=== PATIENT | female | born 1955 | race Caucasian/White ===

== ENCOUNTER 2022-01-19 08:41 | Outpatient (CLI) | payer MEDICARE ==
--- NOTE | 2022-01-26 14:52 | Mammography Report ---
BILATERAL DIGITAL SCREENING MAMMOGRAM 3D/2D: 01/19/2022 CLINICAL: Routine screening. Additional films were requested but not obtained. There are scattered fibroglandular elements in bot h breasts. There is an oval mass with coarse calcifications in the left breast at 8 o'clock posterior depth. No other significant masses, calcifications, or other findings are seen in either breast. IMPRESSION: INCOMPLETE: NEED PRIOR STUDIES FOR COMPARISON The oval mass in the left breast resembles a fibroadenoma and is indeterminate. Additional views wit h possible ultrasound are recommended. This exam was interpreted at Station ID: [id number]. NOTE: For mammograms, a report in lay terms will be sent to the patient. Approximately 15% of breast malignancies will not be visualized mammographically. In the management of a palpable breast mass, a negative mammogram must not discourage biopsy of a clinically suspicious lesion. Electronically Signed By: Kenny ford/juvencio:01/26/2022 08:30:23 ACR BI-RADS Category 0 Need prior studies for comparison [id number] PARENCHYMAL PATTERN: (A) - The breast(s) demonstrate(s) scattered fibroglandular densities. BI-RADS CATEGORY: (0) - 0 Mammo and [place] [id number] Immediate follow-up LATERALITY: (L)
== END 2022-01-19 08:42 | disposition home or self-care (01) ==
LOC: DI.N 08:41
DX: Z12.31 Encounter for screening mammogram for malignant neoplasm of breast (principal); R92.8 Other abnormal and inconclusive findings on diagnostic imaging of breast

== ENCOUNTER 2022-04-01 08:52 | Emergency (ER) | payer MEDICARE ==
--- NOTE | 2022-04-01 09:02 | ED Physician Documentation ---
PD HPI ABD PAIN - Stated complaint Stated Complaint: ABD PAIN - History obtained from History obtained from: Patient - History of Present Illness Timing - onset: How many days ago (3) Timing - duration: Days (3) Timing - details: Abrupt onset, Still present, Waxing and waning. No: Intermittant Quality: Cramping, Aching, Pain Location: Epigastric, LUQ, Periumbilical Radiation: Upper back Improved by: Laying still, Vomiting Worsened by: Eating, Moving. No: Breathing Associated symptoms: Nausea, Vomiting (couple of times), Diarrhea (soft stool), Loss of appetite. No: Fever, Constipation, Melena, Dysuria, Hematuria Similar symptoms before: Has not had sx before (History of diverticulitis with diverticular pain commonly. This feels different.) Recently seen: Not recently seen Review of Systems Constitutional: denies: Fever, Chills Nose: denies: Rhinorrhea / runny nose, Congestion Throat: denies: Sore throat Respiratory: denies: Cough GI: reports: Abdominal Pain, Nausea, Vomiting. denies: Constipation, Diarrhea : denies: Dysuria, Frequency Skin: denies: Rash, Lesions Neurologic: denies: Generalized weakness, Near syncope, Altered mental status PD PAST MEDICAL HISTORY - Past Medical History Cardiovascular: None Respiratory: None Endocrine/Autoimmune: None GI: Diverticulitis : None - Past Surgical History Past Surgical History: No - Present Medications Home Medications: Ambulatory Orders Medication Instructions Recorded Confirmed Amox/Clav 875/125 [Augmentin] 1 each PO Q12H #14 tablet 04/01/22 Naproxen 500 mg PO BID #14 tab.sr 04/01/22 Ondansetron Odt [Zofran] 4 mg TL Q6H PRN #15 tablet 04/01/22 oxyCODONE [Roxicodone] 5 mg PO Q6H PRN #12 tablet 04/01/22 - Allergies Allergies/Adverse Reactions: Allergies Allergy/AdvReac Type Severity Reaction Status Date / Time No Known Drug Allergies Allergy Verified 04/01/22 09:05 PD ED PE NORMAL - Vitals Vital signs reviewed: Yes - General General: Alert and oriented X 3, Well developed/nourished, Other (appears in considerable pain from abd. ) - Neck Neck: Supple, no meningeal sign, No adenopathy - Cardiac Cardiac: RRR, No murmur - Respiratory Respiratory: No respiratory distress, Clear bilaterally - Abdomen Abdomen: Soft, Non distended, No organomegaly, Other (Decreased bowel sounds generally. Moderately severe tenderness in the mid to left upper abdomen and epigastric area with guarding and percussion tenderness. No rebound. Lower abdomen not tender.) - Back Back: No CVA TTP - Derm Derm: Normal color, Warm and dry - Extremities Extremities: No edema, No calf tenderness / cord - Neuro Neuro: Alert and oriented X 3, No motor deficit, Normal speech Results - Vitals Vitals: Vital Signs - 24 hr 04/01/22 04/01/22 09:01 11:04 Temperature 36.4 C L Heart Rate 70 67 Respiratory 17 18 Rate Blood Pressure 144/81 H 137/80 H O2 Saturation 94 93 Oxygen O2 Source Room air - Labs Labs: Laboratory Tests 04/01/22 04/01/22 04/01/22 09:47 09:47 09:55 WBC 11.4 H RBC 4.30 Hgb 12.6 Hct 38.1 MCV 88.6 MCH 29.3 MCHC 33.1 RDW 13.0 Plt Count 329 MPV 8.6 Neut # (Auto) 9.4 H Lymph # (Auto) 0.9 L [place] # (Auto) 1.0 Eos # (Auto) 0.0 Baso # (Auto) 0.0 Absolute Nucleated RBC 0.00 Nucleated RBC % 0.0 Sodium 136 Potassium 3.4 L Chloride 100 L Carbon Dioxide 26 Anion Gap 10.0 BUN 9 Creatinine 0.6 Estimated GFR (MDRD) 100 Glucose 107 H Calcium 8.8 Total Bilirubin 0.8 AST 15 ALT 15 Alkaline Phosphatase 51 Total Protein 6.8 Albumin 3.5 Globulin 3.3 Albumin/Globulin Ratio 1.1 Lipase 32 Urine Color YELLOW Urine Clarity CLEAR Urine pH 6.0 Ur Specific [place] <=1.005 Urine Protein NEGATIVE Urine Glucose (UA) NEGATIVE Urine Ketones NEGATIVE Urine Occult Blood SMALL H Urine Nitrite NEGATIVE Urine Bilirubin NEGATIVE Urine Urobilinogen 0.2 (NORMAL) Ur Leukocyte Esterase TRACE H Urine RBC 6-10 H Urine WBC 4-5 Ur Squamous Epith Cells FEW Squamous Urine Bacteria Rare Ur Microscopic Review INDICATED Urine Culture Comments INDICATED - Rads (name of study) abd/pelvic CT without contrast Radiology: Prelim report reviewed (Diverticula without diverticulitis. Terminal ileum is normal. There is gallbladder distention with wall thickening and surrounding fluid and a stone in the neck consistent with likely cholecystitis. Ultrasound recommended.), See rad report PD MEDICAL DECISION MAKING - ED course Complexity details: reviewed results (White count and lipase and LFTs are normal. CT scan showing likely cholecystitis. Will confirm with ultrasound and evaluate the common bile duct. Symptoms are improved with some pain medicine. We will discuss options after ultrasound.), re-evaluated patient, considered differential (Mid to upper abdominal pain. Consider diverticulitis versus ureteral process. There is some tenderness in the upper abdomen so consider gastritis or pancreas. Less tender to the right but still gallbladder possible. We will get labs and CT scan.), d/w patient, d/w inbound sales consultant (I spoke with Sergei BARRAGAN on-call who states he did not have any prompter follow-up outpatient and referred to our local surgical staff. The patient does not seem to need emergent surgery. If she comes back over the weekend with worse symptoms, to recall [place] for transfer.) Departure - Departure Clinical Impression: Abdominal pain, Acute cholecystitis Condition: Stable Record reviewed to determine appropriate education?: Yes Instructions: ED Gallbladder Infec Conf Follow-Up: KELLY HALE PA-C [Primary Care Provider] - Francisco Pham MD [Provider Admit Priv/Credential] - Prescriptions: Amox/Clav 875/125 [Augmentin] 1 each PO Q12H #14 tablet Naproxen 500 mg PO BID #14 tab.sr oxyCODONE [Roxicodone] 5 mg PO Q6H PRN #12 tablet PRN Reason: Pain Ondansetron Odt [Zofran] 4 mg TL Q6H PRN #15 tablet PRN Reason: Nausea / Vomiting Comments: It does look like you have an inflamed and concern for infection gallbladder causing your symptoms. The gallbladder is stimulated to contract in response to the need to digest food and in particular fatty foods. Therefore I would suggest clear liquid diet or bland food (nonfatty) over the next few days. Small frequent fluids to maintain hydration. Use ondansetron if needed for nausea every 4-6 hours. Naproxen anti- inflammatory twice daily with antacid, simple food or some sips of fluids. Augmentin twice daily for a week for potential early infection as well. Add Tylenol every 4-6 hours for mild pain and oxycodone to that if needed for worse pain. Return to the ER if worsening pain again or fevers, repetitive vomiting, other concerns. Otherwise call the surgical office Sunday morning and see if they are able to get you in as an ER follow-up within 1 or 2 days. If they are not able to see you and you are still having some degree of symptoms, then just return to the ER for recheck. If this improves to normal, then you may be able to "wait and see" if recurrent problem. Otherwise, to discuss with a surgeon the pros and cons of gallbladder surgery. I transmitted your prescriptions to [facility] in [place]. The [facility] pharmacy here in [place] will not be open this weekend. I am prescribing a short course of narcotic pain medication for you. These are potentially dangerous and addictive medications that should be used carefully. These medications may constipate you. Take an krvm-fib-[id number] stool softener such as docusate twice daily with plenty of water while taking these medications. If you go 24 hours without a bowel movement, take [id number] MiraLAX, per package instructions. Do not drink or drive while taking these medications. If you received narcotic or sedating medications while in the emergency department do not drive for 24 hours. Store this medication in a safe, secure place and out of reach of children. It is a violation of federal law to give or sell this medication to another person or to use in a manner other than prescribed. The ED will not refill narcotic prescriptions, including prescriptions lost or stolen. You can dispose of unwanted medications at the [facility]'s office or at several pharmacies such as [facility].
[2022-04-01] MEDS ORDERED: SODIUM CHLORIDE 0.9% 1,000 ML IV STA (09:25)
[2022-04-01] MEDS ORDERED: HYDROmorphone 1 MG/ML CARPUJECT IVP STA (09:25)
[2022-04-01] MEDS ORDERED: ONDANSETRON 4 MG/2 ML VIAL IVP STA (09:25)
[2022-04-01 09:56] LABS: BASOPHILS % (AUTO) 0.2 %; EOSINOPHILS % (AUTO) 0.3 %; HCT - HEMATOCRIT 38.1 % (37.0-47.0); HGB - HEMOGLOBIN 12.6 g/dL (12.0-16.0); LYMPHOCYTES # (AUTO) 0.9 10^3/uL (1.5-3.5); LYMPHOCYTES % (AUTO) 7.7 %; MEAN CORPUSCULAR HEMOGLOBIN 29.3 pg (27.0-31.0); MEAN CORPUSCULAR HGB CONC 33.1 g/dL (32.0-36.0); MEAN CORPUSCULAR VOLUME 88.6 fL (81.0-99.0); MEAN PLATELET VOLUME 8.6 fL (7.9-10.8); MONOCYTES % (AUTO) 8.9 %; NEUTROPHILS # (AUTO) 9.4 10^3/uL (1.5-6.6); NEUTROPHILS % (AUTO) 82.5 %; PLT - PLATELET COUNT 329 10^3/uL (130-450); WHITE BLOOD COUNT 11.4 x10^3/uL (4.8-10.8)
[2022-04-01 10:00] LABS: BILIRUBIN,URINE NEGATIVE (NEGATIVE); GLUCOSE, URINE (UA) NEGATIVE (NEGATIVE); KETONES,URINE (UA) NEGATIVE (NEGATIVE); LEUKOCYTE ESTERASE, URINE TRACE (NEGATIVE); NITRITE,URINE NEGATIVE (NEGATIVE); OCCULT BLOOD,URINE SMALL (NEGATIVE); PROTEIN,URINE NEGATIVE (NEGATIVE); UROBILINOGEN,URINE 0.2 (NORMAL) E.U./dL (NORMAL)
[2022-04-01 10:05] LABS: CLARITY,URINE CLEAR (CLEAR)
[2022-04-01 10:06] LABS: BACTERIA,URINE Rare /HPF (None Seen); SQUAMOUS EPITHELIAL CELL,UR FEW Squamous (<= Few)
[2022-04-01 10:07] LABS: ALBUMIN 3.5 g/dL (3.2-5.5); ALBUMIN/GLOBULIN RATIO 1.1 (1.0-2.2); BILIRUBIN,TOTAL 0.8 mg/dL (0.2-1.0); CALCIUM 8.8 mg/dL (8.5-10.3); CREATININE 0.6 mg/dL (0.4-1.0); POTASSIUM 3.4 mmol/L (3.5-5.0); TOTAL PROTEIN 6.8 g/dL (6.7-8.2)
--- NOTE | 2022-04-01 10:19 | CT Report ---
PROCEDURE: Abdomen/Pelvis WO INDICATIONS: 3 days general abd pain TECHNIQUE: After the administration of contrast, 5 mm thick sections acquired from the diaphragms to the sym physis. 5 mm thick coronal and sagittal reformats were acquired. For radiation dose reduction, the following was used: automated exposure control, adjustment of mA and/or kV according to patient size . COMPARISON: None. FINDINGS: Image quality: Excellent. ABDOMEN: Lung bases: Lung bases are clear. Heart size is normal. Solid organs: Liver: The liver has no mass or intrahepatic biliary ductal dilatation. The portal vein and hepatic veins are patent. Biliary: The gallbladder is distended with wall thickening and surrounding inflammation. There is a s tone in the neck or cystic duct of the gallbladder. Pancreas: The pancreas has no mass or ductal dilatation. No surrounding inflammation. Spleen: Normal size. No mass. Adrenal glands: No hypertrophy or nodules. Kidneys: No obstructive calculus or hydronephrosis. No solid mass. No cystic mass. Bowel: The distal esophagus and stomach are normal. The small bowel has a normal caliber and appeara nce. The terminal ileum is normal. There is diverticulosis of the sigmoid colon with no evidence of diverticulitis. Free air/free fluid: No free air or free fluid. Abdominal wall: No abdominal wall mass or hernia. Retroperitoneum: No retroperitoneal or mesenteric adenopathy by size criteria. Aorta and inferior ve na cava are normal in size. Lymph nodes: No adenopathy. Bones: No suspicious bony lesions. No vertebral body compression fractures. Degenerative disc diseas e at L3-4 and L4-5. PELVIS: Genitourinary: Bladder wall thickness is normal. Miscellaneous: No inguinal hernias or adenopathy. IMPRESSION: 1. Acute cholecystitis. Recommend gallbladder ultrasound. 2. Diverticulosis without evidence of diverticulitis. Reviewed by: Eriberto Nolasco on 04/01/2022 10:18 AM PDT Approved by: Eriberto Nolasco on 04/01/2022 10:18 AM PDT Station ID: [id number]
--- NOTE | 2022-04-01 12:01 | Ultrasound Report ---
PROCEDURE: Abdomen Limited INDICATIONS: cholecystitis likely on CT scan; US recommended. TECHNIQUE: Real-time focused scanning was performed of the abdomen, with image documentation. COMPARISON: None FINDINGS: Gallbladder demonstrates wall thickening measuring 4.9 mm. The common bile duct is dilated measuring 7.1 mm. Pancreas was not well visualized due to overlying bowel gas however the pancreatic duct is seen measuring approximately 4.5 mm. Right kidney measures 9.4 cm in length. IMPRESSION: Gallbladder wall thickening is seen suggesting cholecystitis. Note that the gallbladder seen on CT wa s not seen with ultrasound but is probably deep being in the cystic duct Nicci and not visible by u ltrasound. Reviewed by: Erbierto Nolasco on 04/01/2022 12:00 PM PDT Approved by: Eriberto Nolasco on 04/01/2022 12:00 PM PDT Station ID: [id number]
[2022-04-01] MEDS ORDERED: HYDROmorphone 0.5 MG/0.5 ML SYRINGE IVP STA (12:08)
[2022-04-01] MEDS ORDERED: KETOROLAC 15 MG/ML VIAL IVP STA (12:08)
[2022-04-01] MEDS ORDERED: AMPICILLIN/SULBACTAM 1.5 GM in SODIUM CHLORIDE 0.9% MINIBAG 100 ML IV STA (12:49)
[2022-04-01 13:37] VITALS: BP 137/78
== END 2022-04-01 13:43 | disposition home or self-care (01) ==
LOC: ED 08:52
DX: K80.00 Calculus of gallbladder with acute cholecystitis without obstruction (principal)
CPT/HCPCS: 36415; 74176; 76705; 80053; 81001; 83690; 85025; 87086; 96374; 96375; 96376; 99284; 99285; J1170; 81003

== ENCOUNTER 2022-05-18 08:48 | Outpatient (CLI) | payer MEDICARE ==
[2022-05-18 09:12] LABS: CREATININE 0.7 mg/dL (0.4-1.0)
[2022-05-18] MEDS ORDERED: DIATRIZOATE MEGLU/DIATRIZO SOD 30 ML BOTTLE PO ONE (09:20)
--- NOTE | 2022-05-18 19:44 | CT Report ---
PROCEDURE: Abdomen/Pelvis W INDICATIONS: CHOLECYSTITIS CONTRAST: IV CONTRAST: Optiray 320 ml: 100 PO CONTRAST: Optiray 320 ml50 TECHNIQUE: After the administration of IV and oral contrast, 5 mm thick sections acquired from the diaphragms to the symphysis. 5 mm thick coronal and sagittal reformats were acquired. For radiation dose reducti on, the following was used: automated exposure control, adjustment of mA and/or kV according to josias ent size. COMPARISON: 04/01/2022. FINDINGS: Image quality: Excellent. ABDOMEN: Lung bases: Dependent atelectasis in posterior aspect of bilateral lung bases are seen. No pleural ef fusion or pneumothorax. Heart size is mildly enlarged, no pericardial effusion. Solid organs: Gallbladder is partially distended. Diffuse gallbladder wall thickening and extensive p ericholecystic inflammatory changes are seen. No calcified gallstone is noted. Liver is normal in siz e. Well-circumscribed hypodensity adjacent to gallbladder fossa in medial segment left hepatic lobe i s seen measures 1.6 x 1 cm in size and may represent hepatic cyst. 7 x 4 mm hypodensity is seen in ri ght hepatic lobe and is too small to adequately characterize. Spleen is normal in size and show nisa l enhancement. Biliary system is non dilated. Pancreas enhances normally. No adrenal nodules. Kidn eys demonstrate normal size and enhancement, without hydronephrosis. Peritoneum and bowel: Bowel loops demonstrate normal wall thickness and caliber. No free fluid or a ir. Mild fecal stasis in the colon is seen. Appendix is visualized and is within normal limits. Exte nsive sigmoid diverticulosis is seen, no colonic wall thickening or mesenteric fat stranding. No absc ess collection. Nodes and vessels: No retroperitoneal or mesenteric adenopathy by size criteria. Aorta and inferior vena cava are normal in size. Miscellaneous: Small umbilical hernia is seen containing fat only. PELVIS: Genitourinary: Bladder wall thickness is normal. Miscellaneous: No inguinal hernias or adenopathy. Bones: No suspicious bony lesions. No vertebral body compression fractures. Degenerative endplate changes and loss of disc height at L3-4 and L4-5 levels are seen. IMPRESSION: 1. Marked inflammatory changes involving gallbladder consistent with cholecystitis. No calcified gall stones. No significant biliary ductal dilatation. 2. No bowel obstruction or abnormal bowel wall thickening. No free fluid of free air. Extensive colon ic diverticulosis without evidence of acute diverticulitis. Normal appendix. 3. Hypodense areas in right and left hepatic lobes as described above which may represent hepatic cys ts. 4. Bibasilar dependent atelectasis. Reviewed by: Brayan Castellanos MD on 05/18/2022 7:43 PM PDT Approved by: Brayan Castellanos MD on 05/18/2022 7:43 PM PDT Station ID: [id number]
== END 2022-05-18 08:49 | disposition home or self-care (01) ==
LOC: DI 08:48
PROVIDERS: ATTEND Surgery
DX: K81.9 Cholecystitis, unspecified (principal); K57.30 Diverticulosis of large intestine without perforation or abscess without bleeding; J98.11 Atelectasis
CPT/HCPCS: 36415; 74177; 82565; Q9963; Q9967

== ENCOUNTER 2023-05-15 13:21 | Emergency (ER) | payer MEDICARE ==
[2023-05-15 13:40] VITALS: BP 118/73; O2SAT 99
--- NOTE | 2023-05-15 14:50 | ED Physician Documentation ---
PD HPI LOWER EXT INJURY - Stated complaint Stated Complaint: LT ANKLE INJ - Chief complaint Chief Complaint: Trauma Ext - History obtained from History obtained from: Patient - Additional information Additional information: Around lunchtime today she was getting up out of a chair and tripped on the carpet and rolled her ankle. Isolated left ankle pain. Not able to walk or bear weight. No other injuries. PD PAST MEDICAL HISTORY - Past Medical History Cardiovascular: None Respiratory: None Neuro: None Endocrine/Autoimmune: None GI: None, Colon polyps, Other (chronic cholecystitis) MASTER CHEF: None : None HEENT: Chronic vision loss Psych: None Musculoskeletal: None Derm: None - Past Surgical History Past Surgical History: No General: Colonoscopy /MASTER CHEF: Other (fibroid removal) - Present Medications Home Medications: Ambulatory Orders Medication Instructions Recorded Confirmed Naproxen 500 mg PO BID #14 tab.sr 04/01/22 04/25/22 Ondansetron Odt [Zofran] 4 mg TL Q6H PRN #15 tablet 04/01/22 04/25/22 oxyCODONE [Roxicodone] 5 mg PO Q6H PRN #12 tablet 04/01/22 04/25/22 - Allergies Allergies/Adverse Reactions: Allergies Allergy/AdvReac Type Severity Reaction Status Date / Time ondansetron [From Zofran] AdvReac Dizziness Verified 05/15/23 13:36 - Social History Does the pt smoke?: No Smoking Status: Never smoker Does the pt drink ETOH?: No Does the pt have substance abuse?: No - Immunizations Immunizations are current?: Yes - POLST Patient has POLST: No PD ED PE NORMAL - Vitals Vital signs reviewed: Yes - General General: Alert and oriented X 3, No acute distress - Extremities Extremities: Other (Tender over the talar dome of the left ankle and mild tenderness over the ATFL without malleolus or Achilles or foot tenderness. No proximal fibular tenderness.) - Neuro Neuro: Alert and oriented X 3, Normal speech Results - Vitals Vitals: Vital Signs - 24 hr 05/15/23 13:36 Temperature 35.9 C L Heart Rate 60 Respiratory 16 Rate Blood Pressure 118/73 O2 Saturation 99 Oxygen O2 Source Room air - Rads (name of study) Three-view x-ray of the right ankle is negative for fracture. Relevant Findings:: Final report received, EMP independent interpretation of test Departure - Departure Disposition: 01 Home, Self Care Clinical Impression: Left ankle sprain Qualifiers: Encounter type: initial encounter Involved ligament of ankle: anterior talofibular ligament Qualified Code(s): S93.492A - Sprain of other ligament of left ankle, initial encounter Condition: Good Record reviewed to determine appropriate education?: Yes Instructions: ED Sprain Ankle W X Ray Comments: Ice elevate. Okay to start walking on it when you are able. If you are not able to walk on it within the week, follow-up with your doctor for consideration for repeat imaging. Tylenol and/or ibuprofen as needed for pain per package instructions. Return if worse.
--- NOTE | 2023-05-15 14:52 | XRAY Report ---
PROCEDURE: Ankle 3 View LT INDICATIONS: Trauma TECHNIQUE: 3 views of the ankle were acquired. COMPARISON: None. FINDINGS: Bones: No fractures or dislocations. Ankle mortise is normally aligned. No suspicious bony lesions . Calcaneal bone spurs. Soft tissues: No tibiotalar joint effusion. Achilles tendon appears normal. IMPRESSION: No fracture. No acute osseous lesion. If symptoms and/or clinical concern for pathology persists, fur ther assessment with repeat plain film radiographs (7-10 days) or advanced imaging (CT, MR, bone scan ) should be considered. Reviewed by: Marcia Howard MD, PhD on 05/15/2023 2:51 PM PDT Approved by: Marcia Howard MD, PhD on 05/15/2023 2:51 PM PDT Station ID: [id number]
== END 2023-05-15 15:15 | disposition home or self-care (01) ==
LOC: ED 13:21
DX: S93.492A Sprain of other ligament of left ankle, initial encounter (principal); X50.1XXA Overexertion from prolonged static or awkward postures, initial encounter; Y93.89 Activity, other specified
CPT/HCPCS: 99283

== ENCOUNTER 2023-06-23 13:33 | Emergency (ER) | payer MEDICARE ==
--- NOTE | 2023-06-23 14:10 | ED Physician Documentation ---
History of Present Illness - Stated complaint Stated Complaint: SHAKING,NAUSEA - Chief complaint Chief Complaint: Abd Pain - Additonal information Additional information: 67-year-old female presents emergency department for evaluation of 3 days nausea and now vomiting this morning. She denies fevers, abdominal pain. States she recently completed a course of cephalexin for urinary tract infection diagnosed 2 weeks ago. Patient is concerned that she has sepsis. She states that she had to undergo a cholecystectomy in [facility] in [place] in October 2022. The initial cholecystectomy operation was complicated by a nicked liver, lobe liver adhesions as well as a laceration of her artery. She underwent a second surgery to correct the issues found in the first. Reports that she was profoundly ill for some period of time after this. Review of Systems Constitutional: denies: Fever, Chills Throat: reports: Reviewed and negative Cardiac: reports: Reviewed and negative Respiratory: reports: Reviewed and negative GI: reports: Abdominal Pain, Nausea, Vomiting. denies: Constipation, Diarrhea : reports: Reviewed and negative Skin: reports: Reviewed and negative PD PAST MEDICAL HISTORY - Past Medical History Cardiovascular: None Respiratory: None Neuro: None Endocrine/Autoimmune: None GI: None, Colon polyps, Other (chronic cholecystitis) MIXER AND BLENDER: None : None HEENT: Chronic vision loss Psych: None Musculoskeletal: None Derm: None - Past Surgical History Past Surgical History: No General: Colonoscopy /MIXER AND BLENDER: Other (fibroid removal) - Present Medications Home Medications: Ambulatory Orders Medication Instructions Recorded Confirmed Naproxen 500 mg PO BID #14 tab.sr 04/01/22 04/25/22 Ondansetron Odt [Zofran] 4 mg TL Q6H PRN #15 tablet 04/01/22 04/25/22 oxyCODONE [Roxicodone] 5 mg PO Q6H PRN #12 tablet 04/01/22 04/25/22 - Allergies Allergies/Adverse Reactions: Allergies Allergy/AdvReac Type Severity Reaction Status Date / Time ondansetron [From Zofran] AdvReac Dizziness Verified 06/23/23 13:41 - Social History Does the pt smoke?: No Smoking Status: Never smoker Does the pt drink ETOH?: No Does the pt have substance abuse?: No - Immunizations Immunizations are current?: Yes - POLST Patient has POLST: No PD ED PE NORMAL - General General: Alert and oriented X 3, No acute distress - Cardiac Cardiac: RRR, No murmur - Respiratory Respiratory: No respiratory distress, Clear bilaterally - Abdomen Abdomen: Normal bowel sounds, Soft, Non tender - Back Back: No CVA TTP - Derm Derm: Normal color - Extremities Extremities: No deformity, No tenderness to palpate, Normal ROM s pain - Neuro Neuro: Alert and oriented X 3, ip paralegal 2-12 intact Eye Opening: Spontaneous Motor: Obeys Commands Verbal: Oriented GCS Score: 15 Results - Vitals Vitals: Vital Signs - 24 hr 06/23/23 06/23/23 06/23/23 13:36 14:40 16:00 Temperature 36.5 C Heart Rate 95 103 H 94 Respiratory 20 18 18 Rate Blood Pressure 159/84 H 134/85 H 121/68 O2 Saturation 99 100 99 Oxygen O2 Source Room air - Labs Labs: Laboratory Tests 06/23/23 06/23/23 06/23/23 13:42 13:42 13:49 WBC 9.8 RBC 4.51 Hgb 13.6 Hct 41.7 MCV 92.5 MCH 30.2 MCHC 32.6 RDW 12.8 Plt Count 319 MPV 8.8 Neut # (Auto) 8.5 H Lymph # (Auto) 0.7 L [place] # (Auto) 0.4 Eos # (Auto) 0.1 Baso # (Auto) 0.0 Absolute Nucleated RBC 0.00 Nucleated RBC % 0.0 Sodium 134 L Potassium 3.5 Chloride 98 L Carbon Dioxide 29 Anion Gap 7.0 BUN 10 Creatinine 0.7 Estimated GFR (MDRD) 83 L Glucose 126 H Calcium 8.9 Total Bilirubin 2.2 H AST 115 H ALT 119 H Alkaline Phosphatase 492 H Total Protein 6.5 Albumin 3.6 Globulin 2.9 Albumin/Globulin Ratio 1.2 Lipase 24 Urine Color YELLOW Urine Clarity CLEAR Urine pH 7.5 Ur Specific [place] 1.015 Urine Protein NEGATIVE Urine Glucose (UA) NEGATIVE Urine Ketones NEGATIVE Urine Occult Blood TRACE-INTA Urine Nitrite NEGATIVE Urine Bilirubin NEGATIVE Urine Urobilinogen 2 H Ur Leukocyte Esterase TRACE H Urine RBC 0-5 Urine WBC 0-3 Ur Squamous Epith Cells MOD Squamous H Urine Bacteria Rare Urine Casts 3-5 Hyaline Casts Urine Mucus Marked Strands Ur Microscopic Review INDICATED Urine Culture Comments NOT INDICATED Nasal Adenovirus (PCR) Nasal B. parapertussis DNA (PCR) Nasal Coronavir 229E PCR Nasal Coronavir HKU1 PCR Nasal Coronavir NL63 PCR Nasal Coronavir OC43 PCR Nasal Enterovir/Rhinovir PCR Nasal Influenza B PCR Nasal Influenza A PCR Nasal Parainfluen 1 PCR Nasal Parainfluen 2 PCR Nasal Parainfluen 3 PCR Nasal Parainfluen 4 PCR Nasal RSV (PCR) Nasal B.pertussis DNA PCR Nasal C.pneumoniae (PCR) [place]ver Human Metapneumo PCR Nasal M.pneumoniae (PCR) Nasal SARS-CoV-2 (PCR) Group A Strep Rapid 06/23/23 06/23/23 14:30 15:24 WBC RBC Hgb Hct MCV MCH MCHC RDW Plt Count MPV Neut # (Auto) Lymph # (Auto) [place] # (Auto) Eos # (Auto) Baso # (Auto) Absolute Nucleated RBC Nucleated RBC % Sodium Potassium Chloride Carbon Dioxide Anion Gap BUN Creatinine Estimated GFR (MDRD) Glucose Calcium Total Bilirubin AST ALT Alkaline Phosphatase Total Protein Albumin Globulin Albumin/Globulin Ratio Lipase Urine Color Urine Clarity Urine pH Ur Specific [place] Urine Protein Urine Glucose (UA) Urine Ketones Urine Occult Blood Urine Nitrite Urine Bilirubin Urine Urobilinogen Ur Leukocyte Esterase Urine RBC Urine WBC Ur Squamous Epith Cells Urine Bacteria Urine Casts Urine Mucus Ur Microscopic Review Urine Culture Comments Nasal Adenovirus (PCR) NOT DETECTED Nasal B. parapertussis DNA (PCR) NOT DETECTED Nasal Coronavir 229E PCR NOT DETECTED Nasal Coronavir HKU1 PCR NOT DETECTED Nasal Coronavir NL63 PCR NOT DETECTED Nasal Coronavir OC43 PCR NOT DETECTED Nasal Enterovir/Rhinovir PCR NOT DETECTED Nasal Influenza B PCR NOT DETECTED Nasal Influenza A PCR NOT DETECTED Nasal Parainfluen 1 PCR NOT DETECTED Nasal Parainfluen 2 PCR NOT DETECTED Nasal Parainfluen 3 PCR NOT DETECTED Nasal Parainfluen 4 PCR NOT DETECTED Nasal RSV (PCR) NOT DETECTED Nasal B.pertussis DNA PCR NOT DETECTED Nasal C.pneumoniae (PCR) NOT DETECTED [place]ver Human Metapneumo PCR NOT DETECTED Nasal M.pneumoniae (PCR) NOT DETECTED Nasal SARS-CoV-2 (PCR) NOT DETECTED Group A Strep Rapid Negative PD Medical Decision Making - ED course Complexity details: reviewed results, re-evaluated patient, d/w patient ED course: 67-year-old female presented to the emergency department for evaluation of 3 days nausea and the development of acute vomiting this morning. She denied any abdominal pain or fevers. Her history is complicated by a cholecystectomy in October 2022 that was complicated by what she reports as a liver laceration as well as a nicking of the artery. She did require a second corrective surgery for these concerns. These operations took place at [facility] facilities in [facility]. Presentation to the emergency department she was without fever but did have some rigors and chills. There was no tachycardia or hypotension. On exam I elicited no abdominal tenderness subsequently I did order CBC and electrolytes as well as blood cultures and urinalysis which are pending. CBC showed no leukocytosis. Normal hemoglobin. Serum chemistry however revealed abnormal LFTs with a T. bili of 2.2, AST 115, ALT 119, alk phos 492. Most recent that we have in our system from March of last year showed normal LFTs. Urine was not consistent with an infection. Respiratory PCR negative. Strep was negative. Subsequently the patient was taken to the CT scanner and it did show pneumobilia and a dilated common bile duct but no evidence of phlegmon abscess or liver cyst. Clinically the history as well as the abnormal LFTs is concerning for a sending cholangitis. I have ordered Zosyn 4.5 g. I briefly discussed this case with our hospitalist Dr. Babita Rahman. She feels that the patient will likely require transfer to a facility that has ERCP capability which we do not have here at [facility]. In addition given the weekend and the late hour the day no MRI is not available 1850: I spoke with Dr. James MIN at [facility] he agrees the patient should be transferred for further evaluation of her cholangitis. I spoke then with Dr. Shellie Simental admitting hospitalist who accepts the patient in transfer. Appropriate COBRAs completed. Pt aware of plan to transfer and is in agreement Departure - Departure Disposition: 02 Transfer Acute Care Hosp Clinical Impression: Ascending cholangitis, Hx of cholecystectomy Forms: PCP List
[2023-06-23 14:12] LABS: BASOPHILS % (AUTO) 0.4 %; EOSINOPHILS # (AUTO) 0.1 10^3/uL (0.0-0.7); EOSINOPHILS % (AUTO) 1.3 %; HCT - HEMATOCRIT 41.7 % (37.0-47.0); HGB - HEMOGLOBIN 13.6 g/dL (12.0-16.0); LYMPHOCYTES # (AUTO) 0.7 10^3/uL (1.5-3.5); LYMPHOCYTES % (AUTO) 6.7 %; MEAN CORPUSCULAR HEMOGLOBIN 30.2 pg (27.0-31.0); MEAN CORPUSCULAR HGB CONC 32.6 g/dL (32.0-36.0); MEAN CORPUSCULAR VOLUME 92.5 fL (81.0-99.0); MEAN PLATELET VOLUME 8.8 fL (7.9-10.8); MONOCYTES # (AUTO) 0.4 10^3/uL (0.0-1.0); MONOCYTES % (AUTO) 4.4 %; NEUTROPHILS # (AUTO) 8.5 10^3/uL (1.5-6.6); NEUTROPHILS % (AUTO) 86.9 %; PLT - PLATELET COUNT 319 10^3/uL (130-450); RED BLOOD COUNT 4.51 10^6/uL (4.20-5.40); RED CELL DISTRIBUTION WIDTH 12.8 % (12.0-15.0); WHITE BLOOD COUNT 9.8 x10^3/uL (4.8-10.8)
[2023-06-23 14:14] LABS: GLUCOSE, URINE (UA) NEGATIVE (NEGATIVE); KETONES,URINE (UA) NEGATIVE (NEGATIVE); LEUKOCYTE ESTERASE, URINE TRACE (NEGATIVE); NITRITE,URINE NEGATIVE (NEGATIVE); OCCULT BLOOD,URINE TRACE-INTA (NEGATIVE); PH,URINE 7.5 PH (5.0-7.5); PROTEIN,URINE NEGATIVE (NEGATIVE); UROBILINOGEN,URINE 2 E.U./dL (NORMAL)
[2023-06-23 14:15] LABS: BILIRUBIN,URINE NEGATIVE (NEGATIVE); CLARITY,URINE CLEAR (CLEAR); ICTOTEST,URINE NEGATIVE
--- NOTE | 2023-06-23 14:19 | XRAY Report ---
PROCEDURE: Chest 1 View X-Ray INDICATIONS: n/v TECHNIQUE: One view of the chest was acquired. COMPARISON: None. FINDINGS: Surgical changes and devices: Cholecystectomy clips are seen. Lungs and pleura: An incomplete inspiratory result is noted, with low lung volumes and crowding of t he vascular markings. No focal infiltrates are seen. No large pneumothorax or large pleural effusion can be seen. Mediastinum: Mediastinal contours appear normal. Heart size is normal. Bones and chest wall: No suspicious bony lesions. Age-appropriate degenerative changes are seen. Overlying soft tissues appear unremarkable. IMPRESSION: Limited portable chest examination, without an acute abnormality identified. Postoperative and degenerative changes are seen. Reviewed by: Jesus Vizcarra MD on 06/23/2023 1:18 PM NESSA Approved by: Jesus Vizcarra MD on 06/23/2023 1:18 PM NESSA Station ID: [id number]
[2023-06-23 14:22] LABS: RBC,URINE 0-5 /HPF (0-5); SQUAMOUS EPITHELIAL CELL,UR MOD Squamous (<= Few); WBC,URINE 0-3 /HPF (0-5)
[2023-06-23 14:23] LABS: BACTERIA,URINE Rare /HPF (None Seen); CASTS, URINE 3-5 Hyaline Casts /LPF; MUCUS,URINE Marked Strands
[2023-06-23 14:26] LABS: ALBUMIN 3.6 g/dL (3.2-5.5); ALBUMIN/GLOBULIN RATIO 1.2 (1.0-2.2); BILIRUBIN,TOTAL 2.2 mg/dL (0.2-1.0); CALCIUM 8.9 mg/dL (8.5-10.3); CREATININE 0.7 mg/dL (0.6-1.3); POTASSIUM 3.5 mmol/L (3.5-4.5); TOTAL PROTEIN 6.5 g/dL (6.4-8.9)
[2023-06-23] MEDS ORDERED: SODIUM CHLORIDE 0.9% 1,000 ML IV STA (14:47)
[2023-06-23 15:10] LABS: RAPID STREP SCREEN Negative (Negative)
[2023-06-23 16:28] LABS: B. PARAPERTUSSIS- RESP PCR PAN NOT DETECTED; B. PERTUSSIS- RESP PCR PANEL NOT DETECTED; C. PNEUMONIAE- RESP PCR PANEL NOT DETECTED; CORONAVIRUS 229E-RESP PCR NOT DETECTED; CORONAVIRUS HKU1-RESP PCR NOT DETECTED; CORONAVIRUS NL63-RESP PCR NOT DETECTED; CORONAVIRUS OC43-RESP PCR NOT DETECTED; HUMAN METAPNEUMOVIRUS NOT DETECTED; INFLUENZA A- RESP PCR PANEL NOT DETECTED; INFLUENZA B - RESP PCR PANEL NOT DETECTED; M. PNEUMONIAE- RESP PCR PANEL NOT DETECTED; PARAINFLUENZA VIRUS 1 NOT DETECTED; PARAINFLUENZA VIRUS 2 NOT DETECTED; PARAINFLUENZA VIRUS 3 NOT DETECTED; PARAINFLUENZA VIRUS 4 NOT DETECTED; RHINOVIRUS/ENTEROVIRUS NOT DETECTED; RSV- RESP PCR PANEL NOT DETECTED; SARS-CoV-2 -RESP PCR PANEL NOT DETECTED
--- NOTE | 2023-06-23 17:00 | CT Report ---
PROCEDURE: ABDOMEN/PELVIS W INDICATIONS: n/v; abnormal LFT; hx of cholecystectomy CONTRAST: 100ml omni 300 TECHNIQUE: After the administration of IV contrast, 5 mm thick sections acquired from the diaphragms to the symp hysis. 5 mm thick coronal and sagittal reformats were acquired. For radiation dose reduction, the f ollowing was used: automated exposure control, adjustment of mA and/or kV according to patient size. COMPARISON: 05/18/2022, 04/01/2022 FINDINGS: Image quality: Excellent. Lung bases and heart: Unremarkable. Liver: No solid mass. Gallbladder and biliary tree: Cholecystectomy with biliary gas can be seen. Spleen: No splenomegaly. An accessory splenule is incidentally noted along the inferior aspect of th e primary spleen. Pancreas: No pancreatic ductal dilation. Adrenals: No adrenal nodule. Kidneys and ureters: No hydronephrosis. No renal cystic lesion which requires follow up. No solid mas s. Bowel and peritoneum: No bowel distension. No pathologic free fluid. A normal appendix is seen. Diverticulosis can be seen, without martha findings of active diverticulitis. Lymph nodes: No central or retroperitoneal adenopathy. Vessels: No infrarenal aortic aneurysm. PELVIS Reproductive organs: The uterus demonstrates an unremarkable appearance for age. No adnexal masses ar e seen. Bladder: No abnormal wall thickening, accounting for underdistension. Pelvic lymph nodes: No pelvic adenopathy by size criteria. Bones: No aggressive osseous abnormality. Mild levoconvex scoliotic curvature is seen. Lower lumbar spine degenerative change is seen. Milder degenerative changes are seen elsewhere. Other: No significant ventral or inguinal hernia. IMPRESSION: Interval cholecystectomy, with associated biliary gas. No significant liver abnormality is seen. Additional findings: Accessory splenule Normal appendix Diverticulosis, without findings of active diverticulitis. Levoconvex scoliotic curvature Lumbar spine degenerative change Reviewed by: Jesus Vizcarra MD on 06/23/2023 3:59 PM NESSA Approved by: Jesus Vizcarra MD on 06/23/2023 3:59 PM NESSA Station ID: [id number]
[2023-06-23] MEDS ORDERED: AMPICILLIN/SULBACTAM 3 GM in SODIUM CHLORIDE 0.9% MINIBAG 100 ML IV STA (17:08)
[2023-06-23] MEDS ORDERED: PIPERACILLIN/TAZOBACTAM 4.5 GM in SODIUM CHLORIDE 0.9% MINIBAG 100 ML IV STA (17:18)
[2023-06-23] MEDS ORDERED: iohexoL-300 100 ML VIAL IVP ONE (19:16)
[2023-06-23 21:23] VITALS: BP 122/76; O2SAT 96
[2023-06-24] MEDS ORDERED: PIPERACILLIN/TAZOBACTAM 4.5 GM in SODIUM CHLORIDE 0.9% MINIBAG 100 ML IV SCH (01:00)
== END 2023-06-23 21:26 | disposition short-term general hospital (02) ==
LOC: ED 13:33
DX: K83.09 Other cholangitis (principal)
CPT/HCPCS: 36415; 71045; 74177; 80053; 81001; 83690; 85025; 87040; 87070; 87150; 87181; 87430; 87633; 96361; 96365; 99285; Q9967; 81003; 87086

== ENCOUNTER 2023-06-23 21:22 | Outpatient (CLI) | payer MEDICARE | END 2023-06-23 23:59 | disposition short-term general hospital (02) | LOC: EMS 21:22 | PROVIDERS: ATTEND Registered Nurse | DX: K83.09 Other cholangitis (principal) | CPT/HCPCS: A0425; A0428 ==

== ENCOUNTER 2024-04-27 13:20 | Emergency (ER) | payer MEDICARE ==
[2024-04-27 13:30] VITALS: BP 129/82; O2SAT 99
[2024-04-27 14:54] LABS: BASOPHILS % (AUTO) 0.5 %; EOSINOPHILS # (AUTO) 0.2 10^3/uL (0.0-0.7); EOSINOPHILS % (AUTO) 3.8 %; HCT - HEMATOCRIT 43.4 % (37.0-47.0); HGB - HEMOGLOBIN 13.7 g/dL (12.0-16.0); LYMPHOCYTES # (AUTO) 0.8 10^3/uL (1.5-3.5); MEAN CORPUSCULAR HGB CONC 31.6 g/dL (32.0-36.0); MEAN CORPUSCULAR VOLUME 95.2 fL (81.0-99.0); MEAN PLATELET VOLUME 8.9 fL (7.9-10.8); MONOCYTES # (AUTO) 0.5 10^3/uL (0.0-1.0); MONOCYTES % (AUTO) 7.6 %; NEUTROPHILS # (AUTO) 4.8 10^3/uL (1.5-6.6); NEUTROPHILS % (AUTO) 75.9 %; PLT - PLATELET COUNT 304 10^3/uL (130-450); RED BLOOD COUNT 4.56 10^6/uL (4.20-5.40); RED CELL DISTRIBUTION WIDTH 12.7 % (12.0-15.0); WHITE BLOOD COUNT 6.3 x10^3/uL (4.8-10.8)
[2024-04-27 15:07] LABS: ALBUMIN 3.4 g/dL (3.2-5.5); BILIRUBIN,TOTAL 1.2 mg/dL (0.2-1.0); CREATININE 0.6 mg/dL (0.6-1.3); POTASSIUM 4.2 mmol/L (3.5-4.5); TOTAL PROTEIN 6.9 g/dL (6.4-8.9)
--- NOTE | 2024-04-27 15:08 | ED Physician Documentation ---
History of Present Illness - Stated complaint Stated Complaint: GI, , TIREDNESS - Chief complaint Chief Complaint: Abd Pain - History obtained from History obtained from: Patient - Additonal information Additional information: She has a history of complicated cholecystectomy and kind of chronic GI issues due to that. Takes an occasional ibuprofen. Does not drink alcohol. About 4 days ago she became sick with fevers chills and bodyaches and then developed dark tarry stool and darker than usual urine with some urinary frequency. She did take a dose of Pepto-Bismol. No history of GI bleeding. PD PAST MEDICAL HISTORY - Past Medical History Past Medical History: Yes Cardiovascular: None Respiratory: None Neuro: None Endocrine/Autoimmune: None GI: None, Colon polyps, Other POLYSOM TECH: None : None HEENT: Chronic vision loss Psych: None Musculoskeletal: None Derm: None - Past Surgical History Past Surgical History: Yes General: Colonoscopy /POLYSOM TECH: Other - Present Medications Home Medications: Ambulatory Orders Medication Instructions Recorded Confirmed Naproxen 500 mg PO BID #14 tab.sr 04/01/22 04/25/22 Ondansetron Odt [Zofran] 4 mg TL Q6H PRN #15 tablet 04/01/22 04/25/22 oxyCODONE [Roxicodone] 5 mg PO Q6H PRN #12 tablet 04/01/22 04/25/22 - Allergies Allergies/Adverse Reactions: Allergies Allergy/AdvReac Type Severity Reaction Status Date / Time ondansetron [From Zofran] AdvReac Dizziness Verified 04/27/24 13:25 - Social History Does the pt smoke?: No Smoking Status: Never smoker Does the pt drink ETOH?: No Does the pt have substance abuse?: No - Immunizations Immunizations are current?: Yes - POLST Patient has POLST: No PD ED PE NORMAL - Vitals Vital signs reviewed: Yes - General General: Alert and oriented X 3, No acute distress - Abdomen Abdomen: Other (Hyperactive bowel sounds without tenderness) - Rectal Rectal: Other (Dark but not melenic stool in the vault. Done with [facility] tech) - Neuro Neuro: Alert and oriented X 3 Results - Vitals Vitals: Vital Signs - 24 hr 04/27/24 13:26 Temperature 36.8 C Heart Rate 66 Respiratory 16 Rate Blood Pressure 129/82 H O2 Saturation 99 Oxygen O2 Source Room air - Labs Labs: Microbiology 04/27/24 15:05 Occult Blood - Final Stool Laboratory Tests 04/27/24 04/27/24 04/27/24 14:49 14:49 15:14 WBC 6.3 RBC 4.56 Hgb 13.7 Hct 43.4 MCV 95.2 MCH 30.0 MCHC 31.6 L RDW 12.7 Plt Count 304 MPV 8.9 Neut # (Auto) 4.8 Lymph # (Auto) 0.8 L [place] # (Auto) 0.5 Eos # (Auto) 0.2 Baso # (Auto) 0.0 Absolute Nucleated RBC 0.00 Nucleated RBC % 0.0 Sodium 136 Potassium 4.2 Chloride 100 L Carbon Dioxide 32 Anion Gap 4.0 L BUN 7 Creatinine 0.6 Estimated GFR (MDRD) 99 Glucose 100 Calcium 9.0 Total Bilirubin 1.2 H AST 90 H ALT 107 H Alkaline Phosphatase 589 H Total Protein 6.9 Albumin 3.4 Globulin 3.5 Albumin/Globulin Ratio 1.0 Lipase 39 Urine Color YELLOW Urine Clarity CLEAR Urine pH 7.5 Ur Specific [place] 1.015 Urine Protein NEGATIVE Urine Glucose (UA) NEGATIVE Urine Ketones NEGATIVE Urine Occult Blood NEGATIVE Urine Nitrite NEGATIVE Urine Bilirubin NEGATIVE Urine Urobilinogen 2 H Ur Leukocyte Esterase NEGATIVE Ur Microscopic Review NOT INDICATED Urine Culture Comments NOT INDICATED PD Medical Decision Making - ED course ED course: She presents with concern for GI bleeding and recent illness., That said her H&H is normal and stable from prior values and she is guaiac negative. She does have some elevation of her liver enzymes and this was discussed with her. She was sent to [place] for MRCP and failed ERCP in June of last year and says she had follow-up labs done in November of this year which showed persistent elevation of her liver enzymes. So I would presume this is "her new normal." She really does not have significant abdominal pain nor any tenderness so I do not think further workup is necessary but continued trending of the labs to establish that this is her baseline was recommended. Departure - Departure Disposition: 01 Home, Self Care Clinical Impression: Dark stools, Viral syndrome, Elevated liver function tests Condition: Stable Instructions: ED Viral Syndrome Comments: There is no evidence of blood in your stool or urine today. Urinalysis did not show any infection and your labs were reassuring from the perspective of signs of infection or bleeding. You do have modestly elevated liver enzymes, specifically bilirubin 1.2, AST 90, ALT 107, and alkaline phosphatase 589. These were elevated on your last visit here and you also tell me they were elevated in November at [place] in [facility] so I suspect this is your "new normal" after the gallbladder issue you had. Reasonable to have these checked again to make sure that these are your baseline and would recommend that you keep a set of baseline labs with you for when you are traveling outside of the [facility] area. Call your doctor to arrange a follow-up appointment, make the next available appointment. In the interim, return anytime if worse or if new symptoms develop. Forms: PCP List
[2024-04-27 15:27] LABS: BILIRUBIN,URINE NEGATIVE (NEGATIVE); GLUCOSE, URINE (UA) NEGATIVE (NEGATIVE); KETONES,URINE (UA) NEGATIVE (NEGATIVE); LEUKOCYTE ESTERASE, URINE NEGATIVE (NEGATIVE); NITRITE,URINE NEGATIVE (NEGATIVE); OCCULT BLOOD,URINE NEGATIVE (NEGATIVE); PH,URINE 7.5 PH (5.0-7.5); PROTEIN,URINE NEGATIVE (NEGATIVE); UROBILINOGEN,URINE 2 E.U./dL (NORMAL)
[2024-04-27 15:30] LABS: CLARITY,URINE CLEAR (CLEAR)
== END 2024-04-27 15:40 | disposition home or self-care (01) ==
LOC: ED 13:20 → SUPCPDRO 13:20 → ED 15:40
DX: B34.9 Viral infection, unspecified (principal); R19.5 Other fecal abnormalities; R79.89 Other specified abnormal findings of blood chemistry
CPT/HCPCS: 36415; 80053; 81001; 81003; 82272; 83690; 85025; 87086; 99283

== ENCOUNTER 2024-05-03 07:43 | Emergency (ER) | payer MEDICARE ==
--- NOTE | 2024-05-03 08:16 | ED Physician Documentation ---
History of Present Illness - Stated complaint Stated Complaint: GLF,PASSED OUT,GI ISSUES - Chief complaint Chief Complaint: Abd Pain - History obtained from History obtained from: Patient, Family - History of Present Illness Timing: Today Pain level max: 5 Pain level now: 5 - Additonal information Additional information: Patient is a 68-year-old female with a history of a complicated cholecystectomy that has had chronic gastrointestinal issues since that time. She states that she had nausea and vomiting last night. She felt like she needed to have diarrhea but could not. She states that she stood up at the sink, felt lightheaded and dizzy after vomiting and passed out striking the back of her head. She states that today she has generalized abdominal pain and aching. No blood in the stool. No blood in the vomit. No fevers or chills. No recent antibiotics. No recent travel. She states she has a history of diverticulitis. Also has mild pain to the back of the head. She states there is a lump there as well. Review of Systems Constitutional: denies: Fever, Chills Respiratory: denies: Cough GI: reports: Nausea, Vomiting. denies: Diarrhea, Hematemesis, Bloody / black stool : denies: Dysuria, Frequency, Hesitancy Skin: denies: Rash Musculoskeletal: denies: Neck pain, Back pain Neurologic: denies: Seizure, Confused, Altered mental status PD PAST MEDICAL HISTORY - Past Medical History Cardiovascular: None Respiratory: None Neuro: None Endocrine/Autoimmune: None GI: None, Colon polyps, Other SHALLOT PACKER: None : None HEENT: Chronic vision loss Psych: None Musculoskeletal: None Derm: None - Past Surgical History Past Surgical History: Yes General: Cholecystectomy, Colonoscopy /SHALLOT PACKER: Other - Present Medications Home Medications: Ambulatory Orders Medication Instructions Recorded Confirmed Naproxen 500 mg PO BID #14 tab.sr 04/01/22 04/25/22 Ondansetron Odt [Zofran] 4 mg TL Q6H PRN #15 tablet 04/01/22 04/25/22 oxyCODONE [Roxicodone] 5 mg PO Q6H PRN #12 tablet 04/01/22 04/25/22 Amox/Clav 875/125 [Augmentin] 1 each PO Q8H #30 tablet 05/03/24 Promethazine [Phenergan] 25 mg PO Q6H PRN #10 tab 05/03/24 oxyCODONE [Roxicodone] 5 - 10 mg PO Q6H PRN #14 tablet 05/03/24 MDD 6 - Allergies Allergies/Adverse Reactions: Allergies Allergy/AdvReac Type Severity Reaction Status Date / Time ondansetron [From Zofran] AdvReac Dizziness Verified 05/03/24 07:58 - Social History Does the pt smoke?: No Smoking Status: Never smoker Does the pt drink ETOH?: No Does the pt have substance abuse?: No - Immunizations Immunizations are current?: Yes - POLST Patient has POLST: No PD ED PE NORMAL - Vitals Vital signs reviewed: Yes - General General: Alert and oriented X 3, No acute distress - HEENT HEENT: PERRL, Moist mucous membranes, Other (Small posterior scalp hematoma. No palpable skull fractures) - Neck Neck: Supple, no meningeal sign, No bony TTP - Cardiac Cardiac: RRR, Strong equal pulses - Respiratory Respiratory: No respiratory distress, Clear bilaterally - Abdomen Abdomen: Soft, Non distended, Other (Tender to palpation diffusely. No peritoneal signs) - Back Back: No CVA TTP - Derm Derm: Warm and dry - Extremities Extremities: No edema - Neuro Neuro: Alert and oriented X 3 - Psych Psych: Normal mood, Normal affect Results - Vitals Vitals: Vital Signs - 24 hr 05/03/24 05/03/24 05/03/24 07:51 08:12 08:30 Temperature 36.9 C Heart Rate 87 78 Respiratory 15 15 Rate Blood Pressure 120/83 H 109/59 L O2 Saturation 99 98 05/03/24 05/03/24 09:00 10:00 Temperature Heart Rate 82 70 Respiratory 18 16 Rate Blood Pressure 114/68 131/75 H O2 Saturation 98 94 Oxygen O2 Source Room air - EKG (time done) 0753 EKG releavant findings:: EKG personally interpreted by author of this note. Relevant findings are: Rate: Rate (enter#) (81) Rhythm: NSR [place]: Anterior hemiblock (LAFB) Intervals: Normal LA QRS: Normal Ischemia: Normal ST segments, Q waves (v1-2) - Labs Labs: Laboratory Tests 05/03/24 05/03/24 07:58 07:58 WBC 18.7 H RBC 4.84 Hgb 15.0 Hct 44.9 MCV 92.8 MCH 31.0 MCHC 33.4 RDW 12.7 Plt Count 404 MPV 9.4 Neut # (Auto) 17.9 H Lymph # (Auto) 0.2 L Morrill # (Auto) 0.4 Eos # (Auto) 0.0 Baso # (Auto) 0.1 Absolute Nucleated RBC 0.00 Nucleated RBC % 0.0 Sodium 135 Potassium 3.2 L Chloride 103 Carbon Dioxide 23 Anion Gap 9.0 BUN 7 Creatinine 0.5 L Estimated GFR (MDRD) 122 Glucose 113 H Calcium 8.8 Total Bilirubin 3.9 H AST 136 H ALT 119 H Alkaline Phosphatase 717 H Total Protein 6.7 Albumin 3.4 Globulin 3.3 Albumin/Globulin Ratio 1.0 Lipase 24 - Rads (name of study) CT abdomen pelvis Relevant Findings:: Final report received, See rad report Head CT Relevant Findings:: Final report received, See rad report PD Medical Decision Making - ED course Complexity details: reviewed results, re-evaluated patient, considered differential, d/w patient ED course: No acute findings on head CT. CT abdomen pelvis shows a prior cholecystectomy with biliary dilation. Minimal perihepatic fluid. Abnormal appearing small bowel with generalized wall thickening, consistent with enteritis. Sigmoid colon is also thickened, possible diverticulitis. Has a history of cholangitis. She is not having any right upper quadrant pain today. She does have chronically elevated liver function test. She states that she is followed by GI in [facility]. Her pain resolved with a dose of Dilaudid here. Tolerating p.o. without difficulty. We discussed several treatment options. MRI is not available here, so MRCP is not an option today. She has had a failed ERCP in the past. She is not having fevers or chills. She does not want to be admitted or transferred at this time. We will place her on oral antibiotics for home. Given a dose of IV Zosyn here. We will also prescribe her pain medication and nausea medication. She will return in approximately 48 hours for repeat laboratory testing and a recheck because she does not have a local PCP. If she develops fevers, chills or other new or worrisome symptoms, she will return immediately to the emergency department. Patient and family counseled regarding signs and symptoms for which I believe and urgent re-evaluation would be necessary. Patient and family with good understanding of and agreement to plan and is comfortable going home at this time This document was made in part using voice recognition software. While efforts are made to proofread this document, sound alike and grammatical errors may occur. Departure - Departure Disposition: 01 Home, Self Care Clinical Impression: Elevated liver function tests, Diverticulitis Scalp hematoma Qualifiers: Encounter type: initial encounter Qualified Code(s): S00.03XA - Contusion of scalp, initial encounter Condition: Good Instructions: ED Abdominal Pain Female Non-Specific Abdominal Pain Prescriptions: Amox/Clav 875/125 [Augmentin] 1 each PO Q8H #30 tablet Promethazine [Phenergan] 25 mg PO Q6H PRN #10 tab PRN Reason: Nausea / Vomiting oxyCODONE [Roxicodone] 5 - 10 mg PO Q6H PRN #14 tablet MDD 6 PRN Reason: pain Comments: Your prescriptions were sent to [facility] in [place]. As we discussed please return in approximately 48 hours for repeat laboratory testing and a recheck. Your return sooner if you develop fevers, chills, or other new or worrisome symptoms. As we discussed we cannot exclude infection in your biliary tree, but your CT does appear similar to prior CT scans. We do not have interval liver function tests between last year and this year to determine if your liver tests are always elevated or what the elevation is chronically. Your CT reading is below. I am prescribing a short course of narcotic pain medication for you. These are potentially dangerous and addictive medications that should be used carefully. These medications may constipate you. Take an tqiu-tgw-aslifre stool softener (docusate) twice daily with plenty of water while taking these medications. If you go 24 hours without a bowel movement, take [id number] miralax, per package instructions. Do not drink or drive while taking these medications. If you received narcotic or sedating medications while in the emergency department, do not drive for 24 hours. Store this medication in a safe, secure place and out of reach of children. It is a violation of federal law to give or sell this medication to another person or to use in a manner other than prescribed. The ED will not refill narcotic prescriptions, including prescriptions lost or stolen. To dispose of unwanted medications: 1. [facility] at [address] in [place] has a medication drop box. They accept prescription medications (in pill form) Sunday through Sunday 9:00 a.m. to 5:00 p.m. 2. The [facility] [employer] accepts prescription medications (in pill form only) for disposal year round. Call for more information. 3. Contact the [facility] for the next [facility] sponsored prescription drug collection event. , [phone], or [phone]; EXAM: [id number] CT/ABPEW (92414) PROCEDURE: Abdomen/Pelvis W INDICATIONS: Abdominal pain, acute, nonlocalized CONTRAST: 100 ml omni 300 TECHNIQUE: After the administration of intravenous contrast, a CT scan of the abdomen and pelvis was performed. Images were recorded and evaluated at appropriate window settings. Reformats: coronal and sagittal. For radiation dose reduction, the following was used: automated exposure control, adjustment of mA and/or kV according to patient size. COMPARISON: 06/23/2023, 9822, 04/01/2022 FINDINGS: Image quality: Diagnostic. Lower chest: Mild dependent atelectasis is seen. The heart size is at the upper limits of normal. Liver: No solid mass. A central liver cyst is again seen. Minimal perihepatic fluid can be seen. Gallbladder: Removed. Biliary tree: There is gas seen within the biliary system. The common bile duct measures 9 mm. Moderate intrahepatic biliary ductal dilatation is seen. Spleen: No splenomegaly. An accessory splenule is incidentally noted along the inferior aspect of the primary spleen. Pancreas: No pancreatic ductal dilation. Adrenals: No adrenal nodule. Kidneys and ureters: No hydronephrosis. No renal cystic lesion which requires follow up. No solid mass. Stomach, bowel and peritoneum: Moderate wall thickening can be seen involving the sigmoid colon. Potential minimal surrounding inflammatory change can be seen. No pathologic free fluid can be seen within this region.. No free air is seen. No abscess collection is seen. The more proximal colon demonstrates a mild to moderate volume of stool. Prior resection can be seen proximally. No dilated loops of small bowel are seen. However, the small bowel demonstrates generalized wall thickening. Lymph nodes: No central or retroperitoneal adenopathy. Vessels: No infrarenal aortic aneurysm. Patent portal vein. PELVIS Reproductive organs: The uterus demonstrates an unremarkable appearance for age. No adnexal masses are seen. Bladder: No abnormal wall thickening, accounting for underdistention. Pelvic lymph nodes: No pelvic adenopathy by size criteria. Bones: No aggressive osseous abnormality. Age-appropriate degenerative changes are seen. Mild levoconvex scoliotic curvature is seen. This patient has transitional anatomy. For the purposes of this examination, the level with the last well-developed pair of ribs is considered to be T12. By the summary scheme, the L5 level is transitional and is partially sacralized Other: Anterior abdominal wall hernias are seen, which contain fat. IMPRESSION: Prior cholecystectomy, with biliary dilatation or biliary gas. These imaging findings are most likely within postoperative limits. However, please consider superimposed infection. Minimal perihepatic fluid can be seen. Abnormal appearing small bowel, generalized wall thickening. Please consider enteritis. The sigmoid colon demonstrates wall thickening, with potential minimal surrounding inflammatory change. Please consider early diverticulitis. No findings of perforation or abscess can be seen. Additional findings: Fat-containing anterior abdominal wall hernias Accessory splenule Partial proximal colectomy Levoconvex scoliotic curvature Transitional lumbar anatomy, with a partially sacralized L5 level. Forms: PCP List
[2024-05-03 08:21] LABS: BASOPHILS # (AUTO) 0.1 10^3/uL (0.0-0.1); BASOPHILS % (AUTO) 0.3 %; EOSINOPHILS % (AUTO) 0.1 %; HCT - HEMATOCRIT 44.9 % (37.0-47.0); LYMPHOCYTES # (AUTO) 0.2 10^3/uL (1.5-3.5); LYMPHOCYTES % (AUTO) 1.2 %; MEAN CORPUSCULAR HGB CONC 33.4 g/dL (32.0-36.0); MEAN CORPUSCULAR VOLUME 92.8 fL (81.0-99.0); MEAN PLATELET VOLUME 9.4 fL (7.9-10.8); MONOCYTES # (AUTO) 0.4 10^3/uL (0.0-1.0); MONOCYTES % (AUTO) 2.4 %; NEUTROPHILS # (AUTO) 17.9 10^3/uL (1.5-6.6); NEUTROPHILS % (AUTO) 95.6 %; PLT - PLATELET COUNT 404 10^3/uL (130-450); RED BLOOD COUNT 4.84 10^6/uL (4.20-5.40); RED CELL DISTRIBUTION WIDTH 12.7 % (12.0-15.0); WHITE BLOOD COUNT 18.7 x10^3/uL (4.8-10.8)
[2024-05-03 08:33] LABS: ALBUMIN 3.4 g/dL (3.2-5.5); BILIRUBIN,TOTAL 3.9 mg/dL (0.2-1.0); CALCIUM 8.8 mg/dL (8.5-10.3); CREATININE 0.5 mg/dL (0.6-1.3); POTASSIUM 3.2 mmol/L (3.5-4.5); TOTAL PROTEIN 6.7 g/dL (6.4-8.9)
[2024-05-03] MEDS: HYDROmorphone 1 MG/ML CARPUJECT IVP STA (08:36)
[2024-05-03] MEDS: SODIUM CHLORIDE 0.9% 1,000 ML IV STA (08:36)
[2024-05-03] MEDS ORDERED: iohexoL-300 100 ML VIAL ONE (08:41)
[2024-05-03] MEDS: iohexoL-300 100 ML VIAL IVP ONE (09:25)
--- NOTE | 2024-05-03 09:31 | CT Report ---
PROCEDURE: Head WO INDICATIONS: syncope, head injury TECHNIQUE: Noncontrast 4.5 mm thick angled axial sections acquired from the foramen magnum to the vertex. For r adiation dose reduction, the following was used: automated exposure control, adjustment of mA and/or kV according to patient size. COMPARISON: Correlation is made with the accompanying imaging. FINDINGS: Image quality: Excellent. CSF spaces: Basal cisterns are patent. No extra-axial fluid collections. Ventricles are normal in size and shape. Brain: No midline shift. No intracranial masses or hemorrhage. Gruber-white matter interface is norm al. Skull and face: Soft tissue thickening can be seen of the scalp posteriorly and to the right of the midline. No associated calvarial fracture can be seen. Calvarium and visualized facial bones are inta ct, without suspicious lesions. Sinuses: Visualized sinuses and mastoids are clear. IMPRESSION: Scalp hematoma seen posteriorly and to the right of the midline. Negative for a displaced calvarial fracture. No intracranial hemorrhage is seen. No significant intracranial abnormality is seen. Reviewed by: Jesus Vizcarra MD on 05/03/2024 8:29 AM NESSA Approved by: Jesus Vizcarra MD on 05/03/2024 8:29 AM NESSA Station ID: [id number]
--- NOTE | 2024-05-03 09:40 | CT Report ---
PROCEDURE: Abdomen/Pelvis W INDICATIONS: Abdominal pain, acute, nonlocalized CONTRAST: 100 ml omni 300 TECHNIQUE: After the administration of intravenous contrast, a CT scan of the abdomen and pelvis was performed. Images were recorded and evaluated at appropriate window settings. Reformats: coronal and sagittal. F or radiation dose reduction, the following was used: automated exposure control, adjustment of mA and /or kV according to patient size. COMPARISON: 06/23/2023, 9822, 04/01/2022 FINDINGS: Image quality: Diagnostic. Lower chest: Mild dependent atelectasis is seen. The heart size is at the upper limits of normal. Liver: No solid mass. A central liver cyst is again seen. Minimal perihepatic fluid can be seen. Gallbladder: Removed. Biliary tree: There is gas seen within the biliary system. The common bile duct measures 9 mm. Modera te intrahepatic biliary ductal dilatation is seen. Spleen: No splenomegaly. An accessory splenule is incidentally noted along the inferior aspect of th e primary spleen. Pancreas: No pancreatic ductal dilation. Adrenals: No adrenal nodule. Kidneys and ureters: No hydronephrosis. No renal cystic lesion which requires follow up. No solid mas s. Stomach, bowel and peritoneum: Moderate wall thickening can be seen involving the sigmoid colon. Pote ntial minimal surrounding inflammatory change can be seen. No pathologic free fluid can be seen withi n this region.. No free air is seen. No abscess collection is seen. The more proximal colon demonstrates a mild to moderate volume of stool. Prior resection can be seen proximally. No dilated loops of small bowel are seen. However, the small bowel demonstrates generalized wall thic kening. Lymph nodes: No central or retroperitoneal adenopathy. Vessels: No infrarenal aortic aneurysm. Patent portal vein. PELVIS Reproductive organs: The uterus demonstrates an unremarkable appearance for age. No adnexal masses ar e seen. Bladder: No abnormal wall thickening, accounting for underdistention. Pelvic lymph nodes: No pelvic adenopathy by size criteria. Bones: No aggressive osseous abnormality. Age-appropriate degenerative changes are seen. Mild levoco nvex scoliotic curvature is seen. This patient has transitional anatomy. For the purposes of this examination, the level with the last well-developed pair of ribs is considered to be T12. By the summary scheme, the L5 level is transitio nal and is partially sacralized Other: Anterior abdominal wall hernias are seen, which contain fat. IMPRESSION: Prior cholecystectomy, with biliary dilatation or biliary gas. These imaging findings are most likely within postoperative limits. However, please consider superimposed infection. Minimal perihepatic fluid can be seen. Abnormal appearing small bowel, generalized wall thickening. Please consider enteritis. The sigmoid colon demonstrates wall thickening, with potential minimal surrounding inflammatory gardner e. Please consider early diverticulitis. No findings of perforation or abscess can be seen. Additional findings: Fat-containing anterior abdominal wall hernias Accessory splenule Partial proximal colectomy Levoconvex scoliotic curvature Transitional lumbar anatomy, with a partially sacralized L5 level. Reviewed by: Jesus Vizcarra MD on 05/03/2024 8:38 AM NESSA Approved by: Jesus Vizcarra MD on 05/03/2024 8:38 AM NESSA Station ID: [id number]
[2024-05-03 10:10] VITALS: O2SAT 94
[2024-05-03] MEDS: PIPERACILLIN/TAZOBACTAM 3.375 GM in SODIUM CHLORIDE 0.9% MINIBAG 100 ML IV STA (11:05)
[2024-05-03] MEDS: METOCLOPRAMIDE 10 MG/2 ML VIAL IVP STA (11:53)
[2024-05-03 12:12] VITALS: BP 100/67
== END 2024-05-03 12:18 | disposition home or self-care (01) ==
LOC: ED 07:43
DX: S00.03XA Contusion of scalp, initial encounter (principal); W19.XXXA Unspecified fall, initial encounter; K57.92 Diverticulitis of intestine, part unspecified, without perforation or abscess without bleeding; R79.89 Other specified abnormal findings of blood chemistry; Z79.899 Other long term (current) drug therapy
CPT/HCPCS: 36415; 70450; 74177; 80053; 83690; 85025; 93005; 96365; 96375; 99284; J1170; J2765; Q9967

== ENCOUNTER 2024-05-05 14:52 | Emergency (ER) | payer MEDICARE ==
[2024-05-05 15:30] VITALS: BP 117/80; O2SAT 98
[2024-05-05 16:48] LABS: BASOPHILS % (AUTO) 0.5 %; EOSINOPHILS # (AUTO) 0.1 10^3/uL (0.0-0.7); EOSINOPHILS % (AUTO) 1.9 %; HCT - HEMATOCRIT 44.9 % (37.0-47.0); HGB - HEMOGLOBIN 14.6 g/dL (12.0-16.0); LYMPHOCYTES # (AUTO) 0.5 10^3/uL (1.5-3.5); LYMPHOCYTES % (AUTO) 8.5 %; MEAN CORPUSCULAR HEMOGLOBIN 30.5 pg (27.0-31.0); MEAN CORPUSCULAR HGB CONC 32.5 g/dL (32.0-36.0); MEAN CORPUSCULAR VOLUME 93.9 fL (81.0-99.0); MEAN PLATELET VOLUME 9.1 fL (7.9-10.8); MONOCYTES # (AUTO) 0.4 10^3/uL (0.0-1.0); MONOCYTES % (AUTO) 6.4 %; NEUTROPHILS # (AUTO) 5.1 10^3/uL (1.5-6.6); NEUTROPHILS % (AUTO) 82.4 %; PLT - PLATELET COUNT 288 10^3/uL (130-450); RED BLOOD COUNT 4.78 10^6/uL (4.20-5.40); RED CELL DISTRIBUTION WIDTH 12.8 % (12.0-15.0); WHITE BLOOD COUNT 6.2 x10^3/uL (4.8-10.8)
[2024-05-05 16:57] LABS: MAGNESIUM 1.7 mg/dL (1.7-2.3)
[2024-05-05 17:03] LABS: ALBUMIN 3.5 g/dL (3.2-5.5); BILIRUBIN,TOTAL 2.9 mg/dL (0.2-1.0); CREATININE 0.5 mg/dL (0.6-1.3); POTASSIUM 3.7 mmol/L (3.5-4.5)
== END 2024-05-05 16:46 | disposition left against medical advice (07) ==
LOC: ED 14:52
DX: Z53.21 Procedure and treatment not carried out due to patient leaving prior to being seen by health care provider (principal)
CPT/HCPCS: 36415; 80053; 83690; 83735; 85025